=== PATIENT | male | born 1945 | race Caucasian/White ===

== ENCOUNTER 2017-12-02 18:29 | Inpatient (IN) | payer MEDICARE ==
[~2017-12-02] VITALS: Ht 190.5 cm; Wt 120.8 kg
[2017-12-02] MEDS ORDERED: PLEASE ENTER ALLERGIES MC SCH (20:00)
[2017-12-02] MEDS ORDERED: SODIUM CHLORIDE 0.9% 1,000ML IVBOLUS ONE (20:00)
[2017-12-02] MEDS ORDERED: SODIUM CHLORIDE FLUSH 10ML SYR IVF ONE (20:00)
[2017-12-02] MEDS ORDERED: FLUT1BLS3 INH (20:16)
[2017-12-02] MEDS ORDERED: LISI40TA PO (20:18)
[2017-12-02] MEDS ORDERED: HYDR25TA6 PO (20:18)
[2017-12-02] MEDS ORDERED: CARV6.2512 PO (20:18)
[2017-12-02] MEDS ORDERED: OMEP-110 PO (20:19)
[2017-12-02 20:23] LABS: BASOPHILS # (AUTO) 0.02 x10^3/uL (0-0.1); BASOPHILS % (AUTO) 0 % (0-1); EOSINOPHILS # (AUTO) 0.11 x10^3/uL (0-0.4); EOSINOPHILS % (AUTO) 1 % (1-7); LYMPHOCYTES # (AUTO) 1.52 x10^3/uL (1-3.4); LYMPHOCYTES % (AUTO) 17 % (22-44); MD NO; MEAN CORPUSCULAR HEMOGLOBIN 36.7 pg (27.5-34.5); MEAN CORPUSCULAR HGB CONC 34.2 g/dL (33.2-36.2); MEAN CORPUSCULAR VOLUME 107.2 fL (81-97); MEAN PLATELET VOLUME 8.6 fL (7.4-10.4); MONOCYTES % (AUTO) 8 % (2-9); NEUTROPHILS # (AUTO) 6.57 x10^3/uL (1.8-6.8); NEUTROPHILS % (AUTO) 74 % (42-75); PLATELET COUNT 159 x10^3/uL (130-400); RED BLOOD COUNT 4.02 x10^6/uL (4.38-5.82); RED CELL DISTRIBUTION WIDTH 14.2 % (9.4-14.8)
[2017-12-02 20:24] LABS: MICROSCOPIC NOT IND
[2017-12-02 20:30] LABS: ALANINE AMINOTRANSFERASE 73 U/L (12-78); ALBUMIN 3.7 g/dL (3.4-5.0); ANION GAP 13 mmol/L (5-15); CALCIUM 8.9 mg/dL (8.5-10.1); CHLORIDE 100 mmol/L (98-107); CREATININE 0.85 mg/dL (0.7-1.3)
[2017-12-02 20:32] LABS: ALKALINE PHOSPHATASE 67 U/L (45-117); BILIRUBIN,TOTAL 0.9 mg/dL (0.2-1.0); TOTAL PROTEIN 7.5 g/dL (6.4-8.2)
[2017-12-02 20:33] LABS: CULTURE INDICATED? NO
[2017-12-02 20:34] LABS: INTERNATIONAL NORMALIZED RATIO 1.06 (0.93-1.1); PROTHROMBIN TIME 10.9 Seconds (9.6-11.5); TROPONIN I < 0.015 ng/mL (0.000-0.045)
[2017-12-02] MEDS ORDERED: OMNIPAQUE 350 MG/ML, 100ML BOTTLE ONE (20:59)
[2017-12-02] MEDS ORDERED: ASPI-515 PO (23:00)
[2017-12-02 23:04] VITALS: BP 148/77
[2017-12-03] VITALS (10 sets, daily range): BP systolic 96–188; BP diastolic 80–94
[2017-12-03] MEDS ORDERED: DOCUSATE 100 MG CAPSULE PO PRN (00:30)
[2017-12-03] MEDS ORDERED: hydrALAzine 20 MG/ML, 1ML IVPush PRN (00:30)
[2017-12-03] MEDS ORDERED: ONDANSETRON ODT 4 MG PO PRN (00:30)
[2017-12-03] MEDS ORDERED: ACETAMINOPHEN 325 MG TABLET PO PRN (00:30)
[2017-12-03] MEDS: ENOXAPARIN 40 MG/0.4 ML SQ SCH ×2 (00:38→23:58)
[2017-12-03 02:36] LABS: TROPONIN I < 0.015 ng/mL (0.000-0.045)
[2017-12-03 08:32] LABS: TROPONIN I < 0.015 ng/mL (0.000-0.045)
[2017-12-03] MEDS: TEMPLATE NON-FORMULARY MED. (Carvedilol** 6.25 MG) PO SCH ×2 (09:00→20:30)
[2017-12-03] MEDS: TEMPLATE NON-FORMULARY MED. (Lisinopril** 40 MG) PO SCH (09:00)
[2017-12-03 09:10] LABS: BASOPHILS # (AUTO) 0.02 x10^3/uL (0-0.1); BASOPHILS % (AUTO) 1 % (0-1); EOSINOPHILS # (AUTO) 0.14 x10^3/uL (0-0.4); EOSINOPHILS % (AUTO) 3 % (1-7); LYMPHOCYTES % (AUTO) 30 % (22-44); MD NO; MEAN CORPUSCULAR HEMOGLOBIN 36.1 pg (27.5-34.5); MEAN CORPUSCULAR VOLUME 106.4 fL (81-97); MEAN PLATELET VOLUME 8.5 fL (7.4-10.4); MONOCYTES % (AUTO) 14 % (2-9); NEUTROPHILS % (AUTO) 53 % (42-75); PLATELET COUNT 140 x10^3/uL (130-400); RED BLOOD COUNT 3.77 x10^6/uL (4.38-5.82)
[2017-12-03 09:13] LABS: ALANINE AMINOTRANSFERASE 57 U/L (12-78); ALBUMIN 3.3 g/dL (3.4-5.0); ANION GAP 10 mmol/L (5-15); CALCIUM 8.5 mg/dL (8.5-10.1); CHLORIDE 100 mmol/L (98-107); CREATININE 0.86 mg/dL (0.7-1.3)
[2017-12-03 09:16] LABS: ALKALINE PHOSPHATASE 61 U/L (45-117); BILIRUBIN,TOTAL 1.1 mg/dL (0.2-1.0); TOTAL PROTEIN 6.6 g/dL (6.4-8.2)
[2017-12-03] MEDS ORDERED: MAGNESIUM SULFATE PMX 2GM/50ML 50 ML IV ONE (11:00)
[2017-12-03] MEDS: OMEPRAZOLE 20 MG CAPSULE.DR PO SCH (11:09)
[2017-12-03] MEDS: ASPIRIN 81 MG TABLET EC PO SCH (11:09)
[2017-12-03] MEDS: SODIUM CHLORIDE 0.45% 1,000 ML IV SCH ×2 (11:10→22:23)
[2017-12-04 03:49] VITALS: BP 169/98
[2017-12-04 03:51] VITALS: BP_SYST 155; BP_SYST 170; BP_DIAS 71; BP_DIAS 89
[2017-12-04] MEDS: SODIUM CHLORIDE 0.45% 1,000 ML IV SCH (05:25)
[2017-12-04 05:27] VITALS: BP 142/82
[2017-12-04 06:08] LABS: BASOPHILS # (AUTO) 0.02 x10^3/uL (0-0.1); BASOPHILS % (AUTO) 0 % (0-1); EOSINOPHILS # (AUTO) 0.15 x10^3/uL (0-0.4); EOSINOPHILS % (AUTO) 4 % (1-7); LYMPHOCYTES # (AUTO) 1.29 x10^3/uL (1-3.4); LYMPHOCYTES % (AUTO) 29 % (22-44); MD NO; MEAN CORPUSCULAR HEMOGLOBIN 37.1 pg (27.5-34.5); MEAN CORPUSCULAR HGB CONC 34.5 g/dL (33.2-36.2); MEAN CORPUSCULAR VOLUME 107.7 fL (81-97); MEAN PLATELET VOLUME 8.1 fL (7.4-10.4); MONOCYTES # (AUTO) 0.64 x10^3/uL (0.2-0.8); MONOCYTES % (AUTO) 15 % (2-9); NEUTROPHILS # (AUTO) 2.31 x10^3/uL (1.8-6.8); NEUTROPHILS % (AUTO) 52 % (42-75); PLATELET COUNT 113 x10^3/uL (130-400); RED CELL DISTRIBUTION WIDTH 14.4 % (9.4-14.8)
[2017-12-04 06:16] LABS: ALBUMIN 3.2 g/dL (3.4-5.0); ANION GAP 9 mmol/L (5-15); CALCIUM 8.3 mg/dL (8.5-10.1); CHLORIDE 98 mmol/L (98-107)
[2017-12-04 06:18] LABS: CREATININE 0.88 mg/dL (0.7-1.3)
[2017-12-04 08:18] VITALS: BP 162/83
[2017-12-04 08:19] VITALS: BP 161/94
[2017-12-04 08:20] VITALS: BP 161/91
[2017-12-04] MEDS: TEMPLATE NON-FORMULARY MED. (Lisinopril** 40 MG) PO SCH (09:00)
[2017-12-04] MEDS: TEMPLATE NON-FORMULARY MED. (Carvedilol** 6.25 MG) PO SCH (09:00)
[2017-12-04] MEDS: OMEPRAZOLE 20 MG CAPSULE.DR PO SCH (09:10)
[2017-12-04] MEDS: ASPIRIN 81 MG TABLET EC PO SCH (09:11)
[2017-12-04] MEDS ORDERED: MAGNESIUM SULFATE PMX 2GM/50ML 50 ML IV ONE (09:30)
[2017-12-04] MEDS ORDERED: FOLI-17 PO (11:06)
[2017-12-04] MEDS ORDERED: CARV12.543 PO (11:06)
[2017-12-04] MEDS ORDERED: THIA100T10 PO (11:06)
[2017-12-04] MEDS ORDERED: CARVEDILOL 12.5 MG TABLET PO SCH (21:00)
== END 2017-12-04 14:20 | disposition home or self-care (01) | DRG 74 ==
LOC: ED 21:46 → EDIP 21:53 → 5SO 22:34 → DCLOUNGE 12-04 14:02
PROVIDERS: ADMIT Internal Medicine; ATTEND Internal Medicine
DX: G90.9 Disorder of the autonomic nervous system, unspecified (principal); J96.10 Chronic respiratory failure, unspecified whether with hypoxia or hypercapnia; E66.01 Morbid (severe) obesity due to excess calories; S50.312A Abrasion of left elbow, initial encounter; E86.0 Dehydration; Z68.33 Body mass index [BMI] 33.0-33.9, adult; I11.9 Hypertensive heart disease without heart failure; J44.9 Chronic obstructive pulmonary disease, unspecified; S30.1XXA Contusion of abdominal wall, initial encounter; W07.XXXA Fall from chair, initial encounter; Y93.89 Activity, other specified; Y92.89 Other specified places as the place of occurrence of the external cause; Z86.79 Personal history of other diseases of the circulatory system; Z87.891 Personal history of nicotine dependence; Z99.81 Dependence on supplemental oxygen; Z88.0 Allergy status to penicillin
CPT/HCPCS: 36415; 70450; 70551; 71045; 74175; 80048; 80053; 81003; 82040; 83735; 84100; 84484; 85025; 85610; 85730; 93005; 93306; 93880; 99285; G0378; J1650; Q9967; J3475; J7030

== ENCOUNTER → 2018-03-10 | Outpatient (CLI) | payer MEDICARE ==
[~2018-03-10] MED LIST: ASPI-515 PO; CARV12.543 PO; CARV6.2512 PO; FLUT1BLS3 INH; FOLI-17 PO; HYDR25TA6 PO; LISI40TA PO; OMEP-110 PO; THIA100T10 PO
== END | disposition home or self-care (01) ==
LOC: CVU 12:25
PROVIDERS: ATTEND Family Medicine
DX: M79.605 Pain in left leg (principal); M79.604 Pain in right leg; R20.2 Paresthesia of skin; R20.0 Anesthesia of skin; J44.9 Chronic obstructive pulmonary disease, unspecified; I10 Essential (primary) hypertension; Z87.891 Personal history of nicotine dependence
CPT/HCPCS: 93922

== ENCOUNTER 2018-09-15 16:16 | Inpatient (IN) | payer MEDICARE ==
[~2018-09-15] VITALS: Ht 188 cm; Wt 126.2 kg
[2018-09-18 12:16] VITALS: BP 103/67
== END 2018-09-18 15:17 | disposition home or self-care (01) | DRG 177 ==
LOC: ED 18:48 → EDIP 18:56 → 4WST 19:56
PROVIDERS: ADMIT Internal Medicine; ATTEND Internal Medicine
DX: J15.6 Pneumonia due to other Gram-negative bacteria (principal); J96.21 Acute and chronic respiratory failure with hypoxia; E87.1 Hypo-osmolality and hyponatremia; J44.0 Chronic obstructive pulmonary disease with (acute) lower respiratory infection; J44.1 Chronic obstructive pulmonary disease with (acute) exacerbation; J15.9 Unspecified bacterial pneumonia; E66.01 Morbid (severe) obesity due to excess calories; Z68.35 Body mass index [BMI] 35.0-35.9, adult; R27.0 Ataxia, unspecified; R35.0 Frequency of micturition; D69.6 Thrombocytopenia, unspecified; D72.819 Decreased white blood cell count, unspecified; D75.89 Other specified diseases of blood and blood-forming organs; E86.1 Hypovolemia; E87.70 Fluid overload, unspecified; F41.9 Anxiety disorder, unspecified; I10 Essential (primary) hypertension; I49.3 Ventricular premature depolarization; I71.4 Abdominal aortic aneurysm, without rupture; Z87.442 Personal history of urinary calculi; Z87.891 Personal history of nicotine dependence; Z99.81 Dependence on supplemental oxygen; Z98.49 Cataract extraction status, unspecified eye
CPT/HCPCS: 36415; 71045; 80048; 80053; 81003; 82040; 82607; 83735; 83880; 83930; 83935; 84145; 84443; 84484; 85025; 85610; 85730; 87040; 87070; 87205; 87400; 93005; 94640; 96365; 99285; G0378; J0696; J1650; J7060; J7613; J7620; J1940; J7030; J7512